=== PATIENT | male | born 1950 | race Two or more races ===

== ENCOUNTER → 2017-12-29 | Outpatient (CLI) | payer MEDICARE ==
--- NOTE | 2017-12-29 19:10 | Diagnostic Imaging Report ---
PROCEDURE:X-RAY ABDOMEN - KUB COMPARISON:None. INDICATIONS:CALCULUS OF KIDNEY FINDINGS: No obstructive bowel gas pattern. No radiopaque densities project over the renal shadows, expected course of the ureters or bladder. No acute bony abnormalities. CONCLUSION: No radiopaque densities project over the genitourinary system. Lowell Corrales M.D. Dictated by: Lowell Corrales M.D. on 12/29/2017 at 19:13 Electronically approved by: Lowell Corrales M.D. on 12/29/2017 at 19:13
== END ==
LOC: RAD 15:51
PROVIDERS: ATTEND Urology
DX: N20.0 Calculus of kidney (principal)
CPT/HCPCS: 74018

== ENCOUNTER → 2018-06-29 | Outpatient (CLI) | payer MEDICARE ==
--- NOTE | 2018-06-29 15:52 | Diagnostic Imaging Report ---
Exam: Abdominal film Clinical History: Renal stones Comparison: 03/31/2018 DISCUSSION: Questionable calcifications project over the right renal pelvis described on the comparison study is not identified on the current radiograph. No suspicious calcifications project over the renal shadows or expected ureteral courses. Bowel gas pattern shows no dilated, air-filled loops of bowel. Regional skeletal structures are intact. IMPRESSION: No plain film evidence of urolithiasis. Previously described questionable 4-5 mm right renal calculus is not appreciated on the current examination. Signed by: Dr. Aguilar Saenz M.D. on 06/29/2018 3:49 PM
== END ==
LOC: RAD 15:07
PROVIDERS: ATTEND Urology
DX: N20.0 Calculus of kidney (principal)
CPT/HCPCS: 74018

== ENCOUNTER → 2018-12-28 | Outpatient (CLI) | payer BC, MEDICARE ==
--- NOTE | 2018-12-28 16:30 | Diagnostic Imaging Report ---
Exam: Abdominal radiographs - 2 views Clinical History: Renal stone Comparison: KUB 06/29/2018. DISCUSSION: Bowel gas partially obscures visualization of the kidneys. No specific evidence of calcification overlying the kidneys or expected course of the ureters. Nonobstructive bowel gas pattern. No acute osseous abnormality. IMPRESSION: No radiographic evidence of nephrolithiasis. Signed by: Dr. Emilio Blair MD on 12/28/2018 4:27 PM
== END ==
LOC: RAD 15:30
PROVIDERS: ATTEND Urology
DX: Z87.442 Personal history of urinary calculi (principal)
CPT/HCPCS: 74018

== ENCOUNTER → 2019-05-27 | Outpatient (CLI) | payer MEDICARE ==
--- NOTE | 2019-05-27 16:05 | Diagnostic Imaging Report ---
Exam: KUB - 2 views Indication: Renal calculi Comparison: KUB of 12/28/2018 Findings: No radiographically apparent renal calculi. Nonobstructive bowel gas pattern. No free air. Tiny phleboliths in the pelvis. Mild degenerative changes of both hip joints. Minimally visualized lung bases appear clear. Impression: No radiographically apparent renal calculus. Signed by: Wolfgang Goins MD on 05/27/2019 4:01 PM
== END ==
LOC: RAD 14:33
PROVIDERS: ATTEND Urology
DX: Z87.442 Personal history of urinary calculi (principal)
CPT/HCPCS: 74018

== ENCOUNTER → 2019-11-24 | Outpatient (CLI) | payer MEDICARE ==
--- NOTE | 2019-11-24 15:23 | Diagnostic Imaging Report ---
Exam: KUB - 2 views Indication: Renal calculus Comparison: Multiple prior KUBs, most recently 05/27/2019 Findings: No radiographically apparent renal calculi. Nonobstructive bowel gas pattern. No free air. No acute osseous injury. Partially visualized lung bases are clear. Impression: No radiographically apparent renal calculi. Signed by: Wolfgang Goins MD on 11/24/2019 3:19 PM
== END ==
LOC: RAD 14:36
PROVIDERS: ATTEND Urology
DX: N20.0 Calculus of kidney (principal)
CPT/HCPCS: 74018

== ENCOUNTER → 2020-05-22 | Outpatient (CLI) | payer MEDICARE ==
--- NOTE | 2020-05-23 10:39 | Diagnostic Imaging Report ---
Exam: KUB - 2 views Indication: Renal calculus Comparison: Multiple prior KUBs, most recently 11/24/2019 Findings: No definite renal calculi. Nonobstructive bowel gas pattern. No free air. No acute osseous injury. Partially visualized left lung bases clear. Impression: No radiographically apparent renal calculi. Signed by: Troy Bartlett MD on 05/23/2020 10:36 AM
== END ==
LOC: RAD 15:14
PROVIDERS: ATTEND Urology
DX: N20.0 Calculus of kidney (principal)
CPT/HCPCS: 74018

== ENCOUNTER → 2021-10-01 | Outpatient (CLI) | payer MEDICARE | LOC: RAD 15:00 | PROVIDERS: ATTEND Urology | DX: N20.0 Calculus of kidney (principal) | CPT/HCPCS: 74018 ==